=== PATIENT | male | born 1995 | race Caucasian/White ===

== ENCOUNTER 2019-08-26 19:36 | Observation (INO) | payer OTHER ==
[~2019-08-26] VITALS: Ht 177.8 cm; Wt 90.4 kg
[2019-08-26 19:41] VITALS: BP 124/84
[2019-08-26 20:35] LABS: ABSOLUTE BASOPHILS 0.1 thou/uL (0.0-0.2); ABSOLUTE LYMPHOCYTES 2.5 thou/uL (0.8-5.3); ABSOLUTE MONOCYTES 1.2 thou/uL (0.0-1.2); ABSOLUTE NEUTROPHILS 9.4 thou/uL (1.6-8.1); BASOPHILS 0.5 %; EOSINOPHILS 0.4 %; HEMATOCRIT 43.4 % (42.0-52.0); HEMOGLOBIN 14.6 gm/dL (14.0-18.0); LYMPHOCYTES 18.9 %; MCH 28.9 pg (26.0-34.0); MCHC 33.7 g/dL (28.0-37.0); MCV 85.7 fL (80.0-100.0); MONOCYTES 8.8 %; NUCLEATED RBCS 0 /100WBC; PLATELET COUNT* 302 thou/uL (150-400); POLYS 71.4 %; RBC 5.07 mil/uL (4.50-6.00); RDW-CV 12.9 % (10.5-14.5); WBC 13.2 thou/uL (4.0-11.0)
[2019-08-26 20:44] LABS: CALCIUM 9.6 mg/dL (8.5-10.1); CREATININE 0.9 mg/dL (0.6-1.3); POTASSIUM 4.1 mmol/L (3.5-5.1)
[2019-08-26 20:48] LABS: ALBUMIN 4.1 g/dL (3.4-5.0); TOTAL BILIRUBIN 0.8 mg/dL (<0.1-1.0); TOTAL PROTEIN 8.4 g/dL (6.4-8.2)
[2019-08-26 23:24] VITALS: BP 108/68
[2019-08-27] VITALS (7 sets, daily range): BP systolic 102–107; BP diastolic 49–64
[2019-08-27 04:04] LABS: ALBUMIN 3.2 g/dL (3.4-5.0); CALCIUM 8.4 mg/dL (8.5-10.1); CREATININE 0.8 mg/dL (0.6-1.3); MAGNESIUM 1.9 mg/dL (1.8-2.4); PHOSPHORUS* 4.4 mg/dL (2.5-4.9); POTASSIUM 3.9 mmol/L (3.5-5.1); TOTAL PROTEIN 6.7 g/dL (6.4-8.2)
[2019-08-27 04:05] LABS: HEMATOCRIT 37.7 % (42.0-52.0); MCH 28.7 pg (26.0-34.0); MCHC 33.5 g/dL (28.0-37.0); MCV 85.7 fL (80.0-100.0); MPV 7.8 fl. (7.2-11.1); RBC 4.4 mil/uL (4.50-6.00); RDW-CV 12.6 % (10.5-14.5); WBC 9.2 thou/uL (4.0-11.0)
[2019-08-27 04:09] LABS: HEMOGLOBIN 12.6 gm/dL (14.0-18.0)
--- NOTE | 2019-08-27 06:00 | NUR ---
RECEIVED REPORT FROM ED RN. PT TRANSFERRED TO RM 110. PT A&OX4. VSS. ADMISSION HISTORY & PHYSICAL ASSESSMENT COMPLETED AND CHARTED. PT ON RA. ORIENTED TO ROOM & CALL LIGHT. INSTRUCTED ON NPO FOR SURGERY TODAY. COMMUNICATES UNDERSTANDING. CONSENT SIGNED. PT UPADLIB. PT COMPLAINED OF RIGHT LOWER QUADRANT ABDOMINAL PAIN-MEDS GIVEN PER NOV. CALL LIGHT WITHIN REACH.
[2019-08-27] MEDS ORDERED: OXYCODONE HCL 55 MG PO (17:17)
[2019-08-27] MEDS ORDERED: IBUPROFEN100 MG PO (17:17)
[2019-08-27] MEDS ORDERED: ACETAMINOPHEN500 MG PO (17:18)
--- NOTE | 2019-08-27 18:23 | NUR ---
PATIENT IN SURGERY THIS AM, ARRIVED TO UNIT AT 0840. ALERT AND ORIENTED X4. ASSESSMENT COMPLETED AND CHARTED. VSS ON 2 LITERS 02. PAIN MANAGED WITH ORAL OXY AND TYLENOL. NO COMPLAINTS OF NAUSEA. COMPLAINT OF PAIN WHILE TRYING TO URINATE, PYRIDIUM ORDERED AND GIVEN. PATIENT UP AND SITTING ON THE EDGE OF THE BED. LAP SITES X3, CLEAN DRY, INTACT. TITRATED FROM 2 LITERS TO ROOM AIR, VITALS REMAIN STABLE. TOLERATING REGULAR DIET FOR DINNER. CALL LIGHT WITHIN REACH. HOURLY ROUNDS COMPLETED. WILL CONTINUE WITH PLAN OF CARE.
[2019-08-28 04:00] VITALS: BP 110/56
--- NOTE | 2019-08-28 04:15 | NUR ---
ASSUMED CARE AT 1905H,ON RA AND TOLERATED.SEEN SEATING ON THE EDGE OF THE BED.NO BLEEDING NOTED.PT VOIDED BUT STILL WITH PENAIL PAIN.CONTINUE MONITORING AND TOWARD GOALS.
[2019-08-28 07:13] VITALS: BP 108/71
[2019-08-28 12:40] LABS: URINE BLOOD NEGATIVE (Negative); URINE CLARITY CLEAR; URINE COLOR DARK YELLOW; URINE GLUCOSE-RANDOM 1+ (Negative); URINE KETONES TRACE (Negative); URINE LEUKOCYTES-REFLEX NEGATIVE (Negative); URINE PROTEIN 1+ (Negative); URINE SPECIFIC GRAVITY 1.015 (1.005-1.030)
[2019-08-28 12:43] LABS: ICTOTEST (BILI CONFIRMATORY) Negative (Negative); URINE BILIRUBIN 1+ (Negative); URINE NITRITE-REFLEX POSITIVE (Negative)
[2019-08-28 12:49] LABS: BACTERIA-REFLEX 1-9 Few /HPF (None Seen); CASTS None Seen /LPF (None Seen); CRYSTALS None Seen /LPF (None Seen); MUCUS 0-3 Light strn/LPF (None Seen); SQUAMOUS 0-3 Few /LPF (0-3); URINE RBC 0-2 Rare /HPF (0-2); URINE WBC-REFLEX 0-5 Rare /HPF (0-5)
[2019-08-28] MEDS ORDERED: CIPRO500 M1 PO (14:25)
[2019-08-28 14:35] VITALS: BP 103/58
--- NOTE | 2019-08-28 16:18 | NUR ---
cm completed initial assessment to discuss d/c planning. pt mother stated pt lives w/her has no d/c needs. pt has 0 dme. no hx w/snf or hh. independent w/cares. cm to reamin avail to assist as needed.
[2019-08-28 16:53] VITALS: BP 103/58
--- NOTE | 2019-08-28 16:56 | NUR ---
ASSESSMENT COMPLETE. PT ALERT AND ORIENTED X4. DC HOME WITH MOM. INSTRUCTIONS GIVEN AND PATIENT VERBALIZES UNDERSTANDING. IV DC'D WITHOUT COMPLICATIONS. CIPRO CALLED INTO PHARMACY. SEE ASSESSMENT AND VITALS FOR OTHER DETAILS.
--- NOTE | 2019-08-31 10:06 | PATH ---
[facility] [address] [place] [address] PATHOLOGY RPT PROCEDURE Name: JAM COOPER Room: [address] IN M.R.#: [id number] Admission: 08/26/19 Date of : [birth year] Discharge: 08/28/19 Report #: [id number] Path Case #: [id number] L[facility] Accession Number: [id number] . 01 Material submitted: . appendix - APPENDIX . 01 Clinical history: . Acute appendicitis Appendicitis . 02 Diagnosis: Appendix: - Chronic and acute appendicitis, periappendicitis and serositis. (JOSÉ ANTONIO:cara; 08/29/2019) S 08/29/2019 1453 Local . 02 Electronically signed: . Dean Guzman MD, Pathologist NPI- [id number] . 01 Gross description: . The specimen is received in formalin, labeled "Vincent, Jam, appendix" and consists of an appendix measuring 6.4 in length and up to 1.1 in diameter with mesoappendix measuring 1.6 cm thick. The serosa is pink-cabrera and hemorrhagic with focal fibrous adhesions. The margin is closed with a line of carolyn and inked black. Sectioning reveals a dilated lumen containing fecal material and no fecaliths. Electrical Fitter sections are submitted in A1. (SDY; 08/28/2019) SYU/SYU 08/28/2019 1616 Local . 02 Pathologist provided ICD-10: K36, K35.80 . 02 CPT . 006321 Specimen Comment: A courtesy copy of this report has been sent to [phone] Specimen Comment: Report sent to Performed at: [address], [place], [place] [id number] MD Rich Jolly MD Phone: [phone] Performed at: [address] [address] [place], [place] [id number] MD Dean Guzman MD Phone: [phone]
--- NOTE | 2019-09-06 13:15 | OP ---
[address] [address] OPERATIVE REPORT Name: KENNETHKIRSTY Room: [address] IN M.R.#: [id number] Admission: 08/26/19 Attend Phys: Stacey Reardon DO Discharge: 08/28/19 Date of : 97 Report #: [id number] THIS REPORT FOR: //name// CC: Stacey Reardon DO [facility] physician/PCP MD PRIMARY CARE DICTATED BY: Prema Mcgee DO DATE OF SERVICE: 08/27/2019 PREOPERATIVE DIAGNOSIS: Acute appendicitis with localized peritonitis. POSTOPERATIVE DIAGNOSIS: Acute appendicitis with localized peritonitis. PROCEDURE: Laparoscopic appendectomy. PRIMARY SURGEON: Stacey Reardon DO INFRASTRUCTURE DESIGN ENGINEER: Prema Mcgee DO, PGY2 SECOND BREAD BAKER: Gideon Moreno DO, PGY1 ANESTHESIA: General and local. ESTIMATED BLOOD LOSS: 10. FINDINGS: Mild acute inflammation of the appendix. COMPLICATIONS: None. INDICATIONS FOR PROCEDURE: The patient is a pleasant 23-year-old gentleman that presented to the Emergency Department last night with complaint of worsening right lower quadrant pain. Pain started on Wednesday night and has gotten progressively worse since that time, complained of associated nausea but no vomiting, diarrhea or constipation, admitted to fever and chills at home. Workup in the Emergency Department revealed a mild leukocytosis as well as a CT scan that was consistent with acute appendicitis. It was recommended that he undergo laparoscopic appendectomy. The procedure, risks, benefits, possible complications to include bleeding, infection, injury to surrounding structures, hernia at an incision site, need for open procedure, risk of anesthesia, and other risks of surgery were all discussed with the patient in great detail. He voiced complete understanding and wished to proceed with surgery. DESCRIPTION OF PROCEDURE: Informed consent was obtained. [place] [address] OPERATIVE REPORT Name: KIRSTY COOPER Room: [address]#: [id number] Admission: 08/26/19 Attend Phys: Stacey Reardon DO Discharge: 08/28/19 Date of : 97 Report #: [id number] to the operating room and placed supine on the operating room table. He was receiving antibiotics in the perioperative period. SCDs were placed on bilateral lower extremities. General endotracheal anesthesia was induced without difficulty. The patient's left arm was tucked at his side. Abdomen was prepped and draped in the standard sterile fashion. Timeout was performed to ensure correct patient and procedure. We began by injecting approximately 10 mL of 0.5% Marcaine in the infraumbilical area. A 3 cm horizontal infraumbilical incision was made using a #11 blade scalpel. Incision was carried down through the subcutaneous tissue using electrocautery. S retractors were used to dissect down to the level of the fascia. The fascia was then grasped between 2 Kochers and elevated. Fascia was incised using electrocautery. Peritoneum was entered bluntly using a hemostat. 0 Vicryl stay sutures were placed on either side of our fascial opening. A 12 mm Sydnee trocar was inserted through our fascial opening and secured in place using our stay sutures. Abdomen was insufflated without difficulty. Laparoscopic camera was inserted through our trocar and a sweep of the anterior abdominal contents was performed. There were some adhesions in the right lower quadrant as well as omentum overlying the cecum and the right lower quadrant. Otherwise, no obvious abnormalities were noted on our initial sweep of the abdominal contents. The patient was placed in Trendelenburg with the left side down. Left lower quadrant 5 mm trocar was inserted under direct visualization. Blunt grasper was inserted. Omentum and small bowel were retracted medially and superiorly. Cecum was identified as well as the appendix. It did appear to be acutely inflamed. Our suprapubic 5 mm trocar was then inserted under direct visualization. Other blunt grasper was inserted. The tip of the appendix was grasped and elevated. There were some adhesions to the mesoappendix. These were taken down gently using electrocautery. Lateral to the appendix, there were some adhesions to the lateral abdominal wall. These were also gently taken down using electrocautery. We then turned our attention to the base of the appendix. The base of the appendix was grasped with a blunt grasper. [place] dissector was used to dissect a window through the mesoappendix at the base of the appendix where it entered the cecum. Once this was completed, a 45 mm purple load on the Endo-ALMA ROSA stapler was used to come across the base of our appendix. We then grasped the middle portion of the appendix and elevated it. An additional 45 mm purple load on the Endo-ALMA ROSA stapler was used to come across the mesoappendix. A second 45 mm purple load on the Endo-ALMA ROSA stapler was needed to finish coming across our mesoappendix. Once the appendix was completely freed from its attachments, it was placed within an EndoCatch bag. We then turned our attention to the staple lines, these were inspected to ensure hemostasis. Hemostasis was achieved using electrocautery. Right lower quadrant was irrigated with a suction local flatbed driver. The abdomen was then allowed to desufflate slightly as we monitored our staple lines to ensure there was no additional bleeding. All of our staple lines appeared hemostatic. The patient was then flattened out. Right lower quadrant was again copiously irrigated. The left lower quadrant and suprapubic 5 mm trocars were removed under direct visualization. Abdomen was desufflated. The 12 mm trocar was removed as well as the appendix within the EndoCatch bag. The [address] [address] OPERATIVE REPORT Name: KIRSTY COOPER Room: [address]#: [id number] Admission: 08/26/19 Attend Phys: Stacey Reardon DO Discharge: 08/28/19 Date of : 97 Report #: [id number] fascial edges at the infraumbilical incision were then grasped with Kochers, previously placed stay sutures were removed. Fascial opening was closed using 0 Vicryl suture in a fetqdj-rl-wdtor fashion. Subcutaneous tissue was closed using 3-0 Vicryl suture in a simple interrupted and inverted fashion. Skin was closed using 4-0 Monocryl suture in a running subcuticular fashion. A 5 mm trocar sites were closed using 4-0 Monocryl suture in a simple interrupted and inverted fashion. An additional 20 mL of 0.5% Marcaine were injected between our three incisions for a total of 30 mL of 0.5% Marcaine. Abdomen was cleansed and dried. Sterile dressings were applied using Mastisol, Steri-Strips, 4 x 4's and Tegaderms. The patient tolerated the procedure very well. He was allowed to awaken in the operating room and was transferred to the PACU in stable condition with plans to possibly discharge home later today. <ELECTRONICALLY SIGNED> By: Stacey Reardon DO 09/06/19 1315 [id number] [id number] Reardon DO /nt
== END 2019-08-28 16:54 | disposition home or self-care (01) ==
LOC: M.ERS 19:36 → M.TBA-ER 22:51 → M.ORTHSURG 22:51
PROVIDERS: Emergency Medicine; ADMIT Surgery
DX: K35.30 Acute appendicitis with localized peritonitis, without perforation or gangrene (principal)

== ENCOUNTER 2020-02-13 00:18 | Emergency (ER) | payer BC ==
[~2020-02-13] VITALS: Ht 177.8 cm; Wt 90.7 kg
[~2020-02-13 00:18] MED LIST: ACETAMINOPHEN500 MG PO; CIPRO500 M1 PO; IBUPROFEN100 MG PO; OXYCODONE HCL 55 MG PO
[2020-02-13 00:47] VITALS: BP 125/74
== END 2020-02-13 02:35 | disposition home or self-care (01) ==
LOC: M.ERS 00:18
DX: S93.401A Sprain of unspecified ligament of right ankle, initial encounter (principal); Y93.51 Activity, roller skating (inline) and skateboarding; Y93.89 Activity, other specified; Y92.89 Other specified places as the place of occurrence of the external cause; Y99.8 Other external cause status